=== PATIENT | female | born 1965 | race Caucasian/White ===

== ENCOUNTER 2018-10-20 19:30 | Emergency (ER) | payer SELFPAY ==
[~2018-10-20] VITALS: Ht 180.3 cm; Wt 82.0 kg
[2018-10-20] MEDS ORDERED: IBUPROFEN 600MG TABLET PO ONE (21:00)
[2018-10-20] MEDS ORDERED: KETOROLAC 60MG/2ML VIAL IM ONE (21:15)
[2018-10-20 21:47] VITALS: BP 142/90
== END 2018-10-20 21:48 | disposition home or self-care (01) ==
LOC: ER 19:30
DX: M25.512 Pain in left shoulder (principal); S46.912A Strain of unspecified muscle, fascia and tendon at shoulder and upper arm level, left arm, initial encounter; V43.62XA Car passenger injured in collision with other type car in traffic accident, initial encounter; Y93.89 Activity, other specified; Y92.488 Other paved roadways as the place of occurrence of the external cause
CPT/HCPCS: 81025; 96372; 99283; J1885; Z7610

== ENCOUNTER 2020-06-19 10:53 | Emergency (ER) | payer SELFPAY ==
[~2020-06-19] VITALS: Ht 177.8 cm; Wt 85.0 kg
[2020-06-19] MEDS ORDERED: IBUPROFEN 600MG TABLET PO ONE (11:45)
[2020-06-19 13:18] VITALS: BP 113/78
== END 2020-06-19 13:19 | disposition home or self-care (01) ==
LOC: ER 11:50
DX: S93.402A Sprain of unspecified ligament of left ankle, initial encounter (principal); S40.012A Contusion of left shoulder, initial encounter; S80.01XA Contusion of right knee, initial encounter; W01.0XXA Fall on same level from slipping, tripping and stumbling without subsequent striking against object, initial encounter; Y93.01 Activity, walking, marching and hiking; Y92.89 Other specified places as the place of occurrence of the external cause; Y99.8 Other external cause status
CPT/HCPCS: 73030; 73562; 73610; 99284